=== PATIENT | female | born 1950 | race Caucasian/White ===

== ENCOUNTER 2022-03-05 13:15 | Emergency (ER) | payer BC ==
[2022-03-05 13:23] VITALS: BP 180/68; PULSE 72; RESP 18; TEMP 97.4
--- NOTE | 2022-03-05 13:37 | ED ---
General Adult HPI - General Chief complaint: Recheck/Abnormal Lab/Rx Stated complaint: Covid +, Weakness Time Seen by Provider: 03/05/22 13:20 Source: patient, RN notes reviewed, old records reviewed Mode of arrival: ambulatory Limitations: no limitations - History of Present Illness Initial comments: This is a 71-year-old female presents emergency department stating that she tested positive for COVID on Tuesday and started having symptoms last 8 days ago. Patient states she came in today because the symptoms are getting any better she continues to cough and feeling extremely fatigued. Patient states she is not really short of breath and has had no fevers lately. Patient denies any chest pain or palpitations. Patient denies any recent vomiting. Patient states she is a diabetic and has any aortic valve replacement. - Related Data Allergies Allergy/AdvReac Type Severity Reaction Status Date / Time No Known Allergies Allergy Verified 03/05/22 13:23 Review of Systems ROS Statement: Those systems with pertinent positive or pertinent negative responses have been documented in the HPI. ROS Other: All systems not noted in ROS Statement are negative. Past Medical History Past Medical History: Diabetes Mellitus, Hyperlipidemia, Hypertension History of Any Multi-Drug Resistant Organisms: None Reported Additional Past Surgical History / Comment(s): aortic valve replacement 12/2019 Past Psychological History: No Psychological Hx Reported Smoking Status: Never smoker Past Alcohol Use History: None Reported Past Drug Use History: None Reported General Exam - General Exam Comments Initial Comments: GENERAL: Patient is well-developed and well-nourished. Patient is nontoxic and well- hydrated and is in mild distress. ENT: Neck is soft and supple. No significant lymphadenopathy is noted. Oropharynx is clear. Moist mucous membranes. Neck has full range of motion without eliciting any pain. EYES: The sclera were anicteric and conjunctiva were pink and moist. Extraocular movements were intact and pupils were equal round and reactive to light. Eyelids were unremarkable. PULMONARY: Unlabored respirations. Good breath sounds bilaterally. No audible rales rhonchi or wheezing was noted. CARDIOVASCULAR: There is a regular rate and rhythm without any murmurs gallops or rubs. SKIN: Skin is clear with no lesions or rashes and otherwise unremarkable. NEUROLOGIC: Patient is alert and oriented x3. Cranial nerves II through XII are grossly intact. Motor and sensory are also intact. Normal speech, volume and content. Symmetrical smile. MUSCULOSKELETAL: Normal extremities with adequate strength and full range of motion. No lower extremity swelling or edema. No calf tenderness. LYMPHATICS: No significant lymphadenopathy is noted PSYCHIATRIC: Normal psychiatric evaluation. Limitations: no limitations Course Vital Signs 03/05/22 13:17 Temperature 97.4 F L Pulse Rate 72 Respiratory 18 Rate Blood Pressure 180/68 O2 Sat by Pulse 98 Oximetry Medical Decision Making - Medical Decision Making Patient has had symptoms for 8 days she does not qualify for the monoclonal antibodies. Patient is oxygenating well her lungs are clear therefore she was not placed on steroids at this time. Disposition Clinical Impression: COVID-19 Disposition: HOME SELF-CARE Condition: Good Instructions (If sedation given, give patient instructions): Coronavirus Disease 2019 (COVID-19) Is patient prescribed a controlled substance at d/c from ED?: No Referrals: Vivian Padilla DO [Primary Care Provider] - 1-2 days Time of Disposition: 13:36
== END 2022-03-05 13:59 | disposition home or self-care (01) ==
LOC: EC 13:15
DX: U07.1 COVID-19 (principal); E11.9 Type 2 diabetes mellitus without complications; E78.2 Mixed hyperlipidemia; I10 Essential (primary) hypertension